=== PATIENT | female | born 1960 | race Caucasian/White ===

== ENCOUNTER → 2019-06-20 10:45 | Outpatient (BNVA) | payer MEDICARE, SELFPAY | PROVIDERS: Family Provider Family Medicine; PCP Family Medicine; Visit Provider Family Medicine | DX: J18.9 Pneumonia, unspecified organism (principal); I10 Essential (primary) hypertension; M25.569 Pain in unspecified knee; B37.9 Candidiasis, unspecified | CPT/HCPCS: 80053; 80061 ==

== ENCOUNTER → 2019-06-27 15:57 | Outpatient (BNVA) | payer MEDICARE, SELFPAY | PROVIDERS: Family Provider Family Medicine; PCP Family Medicine; Visit Provider Family Medicine | DX: J84.10 Pulmonary fibrosis, unspecified (principal) | CPT/HCPCS: 71046 ==

== ENCOUNTER → 2019-07-24 11:24 | Outpatient (BNVA) | payer MEDICARE, SELFPAY | PROVIDERS: Family Provider Family Medicine; PCP Family Medicine; Visit Provider Family Medicine | DX: Z12.2 Encounter for screening for malignant neoplasm of respiratory organs (principal); Z87.891 Personal history of nicotine dependence; K76.0 Fatty (change of) liver, not elsewhere classified; I10 Essential (primary) hypertension; J44.9 Chronic obstructive pulmonary disease, unspecified; R14.3 Flatulence | CPT/HCPCS: 80053; 85025; 85610 ==

== ENCOUNTER → 2020-01-29 10:53 | Outpatient (BNVA) | payer MEDICARE, SELFPAY | PROVIDERS: Family Provider Family Medicine; PCP Family Medicine; Visit Provider Family Medicine | DX: M25.561 Pain in right knee (principal); M25.562 Pain in left knee; J32.0 Chronic maxillary sinusitis; I10 Essential (primary) hypertension; J41.0 Simple chronic bronchitis; K76.0 Fatty (change of) liver, not elsewhere classified; M77.8 Other enthesopathies, not elsewhere classified; I47.1 Supraventricular tachycardia; Z72.0 Tobacco use; Z82.49 Family history of ischemic heart disease and other diseases of the circulatory system | CPT/HCPCS: 80053 ==

== ENCOUNTER → 2020-07-18 17:35 | Outpatient (BNVA) | payer MEDICARE, SELFPAY | PROVIDERS: Family Provider Family Medicine; PCP Family Medicine; Visit Provider Family Medicine | DX: J32.0 Chronic maxillary sinusitis (principal); M25.569 Pain in unspecified knee; K21.9 Gastro-esophageal reflux disease without esophagitis; I10 Essential (primary) hypertension; K76.0 Fatty (change of) liver, not elsewhere classified; Z13.220 Encounter for screening for lipoid disorders; Z13.6 Encounter for screening for cardiovascular disorders; K13.70 Unspecified lesions of oral mucosa; J41.0 Simple chronic bronchitis; M25.561 Pain in right knee; Z72.0 Tobacco use; M25.562 Pain in left knee; I47.1 Supraventricular tachycardia; N64.4 Mastodynia | CPT/HCPCS: 80053; 80061 ==